=== PATIENT | female | born 1995 | race Caucasian/White ===

== ENCOUNTER 2021-02-05 23:05 | Emergency (ER) | payer OTHER ==
[2021-02-06] MEDS ORDERED: BACTRIM DS TAB1 EACH PO (00:38)
[2021-02-06] MEDS ORDERED: VIBRAMYCIN100 MG PO (00:38)
[2021-02-06] MEDS ORDERED: DIFLUCAN 100MG100 MG PO (00:38)
== END 2021-02-06 00:58 | disposition home or self-care (01) ==
LOC: FER 23:05
DX: L03.116 Cellulitis of left lower limb (principal)
CPT/HCPCS: 99283

== ENCOUNTER 2021-02-20 16:44 | Emergency (ER) | payer OTHER ==
[~2021-02-20 16:44] MED LIST: BACTRIM DS TAB1 EACH PO; DIFLUCAN 100MG100 MG PO; VIBRAMYCIN100 MG PO
[2021-02-20] MEDS ORDERED: KEFLEX250 MG PO (18:09)
[2021-02-20] MEDS ORDERED: ZOFRAN4 M1 PO (18:09)
[2021-02-20] MEDS ORDERED: BACTRIM DS TAB1 EACH PO (18:09)
== END 2021-02-20 18:37 | disposition home or self-care (01) ==
LOC: FER 16:44
DX: S70.361A Insect bite (nonvenomous), right thigh, initial encounter (principal); L03.115 Cellulitis of right lower limb; F17.210 Nicotine dependence, cigarettes, uncomplicated; Z23 Encounter for immunization; Z90.49 Acquired absence of other specified parts of digestive tract; W57.XXXA Bitten or stung by nonvenomous insect and other nonvenomous arthropods, initial encounter
CPT/HCPCS: 87070; 87077; 87186; 87205; 90471; 90715; 99283

== ENCOUNTER 2021-02-21 01:48 | Emergency (ER) | payer OTHER ==
[~2021-02-21 01:48] MED LIST changes: +KEFLEX250 MG PO; +ZOFRAN4 M1 PO
== END 2021-02-21 03:54 | disposition home or self-care (01) ==
LOC: FER 01:48
DX: L03.115 Cellulitis of right lower limb (principal); F17.210 Nicotine dependence, cigarettes, uncomplicated
CPT/HCPCS: 96372; J1040